=== PATIENT | female | born 1990 | race Caucasian/White ===

== ENCOUNTER 2016-08-02 04:09 | Inpatient (IN) | payer BC ==
[2016-08-02] MEDS ORDERED: Sodium Chloride 0.9% 10 ML Syringe FLUSH PRN (05:15)
[2016-08-02] MEDS ORDERED: Nalbuphine 20 MG/1 ML Amp IVPUSH PRN (05:15)
[2016-08-02] MEDS ORDERED: Oxytocin/Lactated Ringers 10 UNIT/1,000 ML BAG IV SCH (05:15)
[2016-08-02] MEDS ORDERED: Ondansetron 4 MG/2 ML SDV IVPUSH PRN ×2 (05:15→08:58)
[2016-08-02] MEDS ORDERED: Lidocaine 1% 50 ML MDV INJECT ONE (05:15)
[2016-08-02] MEDS: Lactated Ringers 1,000 ML IV SCH ×3 (06:35→15:00)
--- NOTE | 2016-08-02 07:00 | PCM.LDHP ---
L&D History of Present Illness - General Date of Service: 08/02/16 Admit Problem/Dx: Patient Status Order with Admit Dx/Problem 08/02/16 05:16 Patient Status [ADT] Routine Admission Diagnosis/Problem Admission Diagnosis/Problem Normal labor Source of Information: Patient History Limitations: Reports: No limitations - History of Present Illness Introduction:: Patient is a 26-year-old at 38-3/7 weeks who presented this morning in early labor. Yesterday in clinic found to be about 2 cm dilated. On initial assessment here in labor and delivery was 3 cm and has now made change to 3-4 cm and 90% effacement. Is trisha frequently about every 3-5 minutes. She is otherwise doing well. No rupture of membranes yet. No other concerns. Pain Score: 8 - Related Data Allergies/Adverse Reactions: Allergies Allergy/AdvReac Type Severity Reaction Status Date / Time No Known Allergies Allergy Verified 08/02/16 05:08 Home Medications: Home Meds #103/Iron Fumarate/Fa [ ] 1 tab PO DAILY 01/21/15 [ History] Calcium Carbonate [Tums] 500 mg PO Q2HR PRN 08/02/16 [History] Past Medical History [employer] History: Reports: , Spontaneous : 5 Para: 0 LMP (Approximate): - Past Surgical History GI Surgical History: Reports: Appendectomy Female Surgical History: Reports: Cystectomy (Right), D&C Social & Family History - Family History Family Medical History: Noncontributory - Tobacco Use Smoking Status *Q: Never Smoker Second Hand Smoke Exposure: No - Caffeine Use Caffeine Use: Reports: None - Alcohol Use Alcohol Use History: No - Recreational Drug Use Recreational Drug Use: No H&P Review of Systems - Review of Systems: Review Of Systems: See Below General: Reports: no symptoms Pulmonary: Reports: No Symptoms Cardiovascular: Reports: no symptoms Gastrointestinal: Reports: No symptoms Genitourinary: Reports: no symptoms Musculoskeletal: Reports: no symptoms Psychiatric: Reports: no symptoms L&D Exam - Exam Exam: See Below - Vital Signs Vital Signs: Last Vital Signs Temp 36.2 C 08/02/16 04:30 Pulse 91 08/02/16 04:30 Resp 18 08/02/16 04:30 BP 139/84 08/02/16 04:30 Pulse Ox 100 08/02/16 04:30 Weight: 108.227 kg - OB Specific Contraction Intensity: Moderate to Strong movement: active heart tones: present heart tones per min: 135 Heart Rate (FHR) Variability: Moderate (6-25 bmp) Presentation: Vertex - Dunn Score Dunn Score Cervix Position: Midposition Dunn Score Consistency: Soft Dunn Score Effacement: >80% Dunn Score Dilation: 3-4 cm Dunn Score Infant's Station: -1 ,0 Dunn Score Total: 10 - Exam General: alert, oriented, cooperative Lungs: Clear to auscultation, Normal respiratory effort Cardiovascular: regular rate, regular rhythm Abdomen: soft Genitourinary: Normal external exam Extremities: normal inspection - Patient Data Lab Results last 24 hrs: Laboratory Results - last 24 hr 08/02/16 08/02/16 08/02/16 Range/Units 05:35 05:35 05:53 WBC 8.77 (3.98-10.04) K/mm3 RBC 4.76 (3.98-5.22) M/mm3 Hgb 13.9 (11.2-15.7) gm/L Hct 41.0 (34.1-44.9) % MCV 86.1 (79.4-94.8) fl MCH 29.2 (25.6-32.2) pg MCHC 33.9 (32.2-35.5) g/dl RDW Std Deviation 42.9 (36.4-46.3) fL Plt Count 193 (182-369) K/mm3 MPV 12.7 H (9.4-12.3) fl Neut % (Auto) 81.6 H (34.0-71.1) % Lymph % (Auto) 14.4 L (19.3-51.7) % [place] % (Auto) 3.5 L (4.7-12.5) % Eos % (Auto) 0.2 L (0.7-5.8) Baso % (Auto) 0.1 (0.1-1.2) % Neut # (Auto) 7.15 H (1.56-6.13) K/mm3 Lymph # (Auto) 1.26 (1.18-3.74) K/mm3 [place] # (Auto) 0.31 (0.24-0.36) K/mm3 Eos # (Auto) 0.02 L (0.04-0.36) K/mm3 Baso # (Auto) 0.01 (0.01-0.08) K/mm3 POC Glucose 91 (70-105) mg/dL Blood Type O POSITIVE Gel Antibody Screen Negative Result Diagrams: 08/02/16 05:35 - Problem List (1) 38 weeks gestation of SNOMED Code(s): 12764422 ICD Code: Z3A.38 - 38 WEEKS GESTATION OF Status: Acute Current Visit: Yes (2) Normal labor SNOMED Code(s): 99937575 ICD Code: O80 - ENCOUNTER FOR FULL-TERM UNCOMPLICATED DELIVERY; Z37.9 - OUTCOME OF DELIVERY, UNSPECIFIED Status: Acute Current Visit: Yes (3) GDM, class A1 SNOMED Code(s): 61654282 ICD Code: O24.410 - GESTATIONAL DIABETES MELLITUS IN , DIET CONTROLLED Status: Acute Current Visit: Yes Problem List Initiated/Reviewed/Updated: Yes Orders Last 24hrs: Active Orders 24 hr Category Date Time Status Patient Status [ADT] Routine ADT 08/02/16 05:16 Active Activity as Tolerated [RC] PFP Care 08/02/16 05:16 Active Blood Glucose Check, Bedside [RC] Q4HR Care 08/02/16 05:15 Active Communication Order [RC] ASDIRECTED Care 08/02/16 05:16 Active Notify Provider [RC] PFP Care 08/02/16 05:16 Active Notify Provider [RC] PRN Care 08/02/16 05:16 Active Peripheral IV Care [RC] . DIRECTED Care 08/02/16 05:16 Active Vital Signs [RC] PER UNIT ROUTINE Care 08/02/16 05:16 Active Regular Diet [DIET] Diet 08/02/16 Breakfast Ordered PATIENT RETYPE [BBK] Stat Lab 08/02/16 05:35 Results TYPE AND SCREEN [BBK] Stat Lab 08/02/16 05:35 Results Lactated Ringers [Ringers, Lactated] 1,000 ml Med 08/02/16 05:15 Active IV ASDIRECTED Nalbuphine [Nubain] Med 08/02/16 05:15 Active 10 mg IVPUSH Q2H PRN Ondansetron [Zofran] Med 08/02/16 05:15 Active 4 mg IVPUSH Q4H PRN Oxytocin/Lactated Ringers [Pitocin in LR 10 Units/1,000 Med 08/02/16 05:15 Active ML] 10 unit in 1,000 ml IV ASDIRECTED Sodium Chloride 0.9% [Saline Flush] Med 08/02/16 05:15 Active 10 ml FLUSH ASDIRECTED PRN Electronic Heart Tones Ext w TOCO [WOMSER] Oth 08/02/16 05:16 Ordered Routine Electronic Heart Tones Internal [WOMSER] Per Unit Oth 08/02/16 05:16 Ordered Routine Peripheral IV Insertion Adult [OM.PC] Routine Oth 08/02/16 05:16 Ordered Resuscitation Status Routine Resus Stat 08/02/16 05:15 Ordered Medication Orders Lactated Ringer's (Ringers, Lactated) 1,000 mls @ 100 mls/hr IV ASDIRECTED [facility] Last Admin: 08/02/16 06:35 Dose: 100 mls/hr Oxytocin/Lactated Ringer's (Pitocin In Lr 10 Units/1,000 Ml) 10 unit in 1,000 mls @ 500 mls/hr IV ASDIRECTED [facility] Nalbuphine HCl (Nubain) 10 mg IVPUSH Q2H PRN PRN Reason: Pain (moderate 4-6) Last Admin: 08/02/16 06:38 Dose: 10 mg Ondansetron HCl (Zofran) 4 mg IVPUSH Q4H PRN PRN Reason: Nausea/Vomiting Sodium Chloride (Saline Flush) 10 ml FLUSH ASDIRECTED PRN PRN Reason: Keep Vein Open Assessment/Plan Comment:: 26-year-old at 38-3/7 weeks presents in labor * CBC and type and screen * Blood sugars every 4 hours in latent labor and then increasing to every 2 in active labor * GBS negative, no need for antibiotics * Pain management per patient preference * Anticipate vaginal delivery Negin Nichole MD
[2016-08-02] MEDS ORDERED: ePHEDrine 50 MG/ML SDV IVPUSH PRN (08:58)
--- NOTE | 2016-08-02 09:06 | PCM.PREANE ---
Preanesthetic Assessment - Anesthesia/Transfusion/Family Hx Anesthesia History: Prior Anesthesia Without Reaction Family History of Anesthesia Reaction: No Transfusion History: No Prior Transfusion(s) Intubation History: Unknown - Review of Systems General: No Symptoms Pulmonary: No Symptoms Cardiovascular: No Symptoms Gastrointestinal: No symptoms (GERD), Nausea (noted a bit today.) Neurological: No Symptoms Other: Reports: Easy Bruising, Diabetes (Gestational DM noted (diet controlled) ), Sinus Problem (seasonal allergies with rhinitis noted.) - Physical Assessment NPO Status Date: 08/02/16 NPO Status Time: 09:00 Pulse: 91 O2 Sat by Pulse Oximetry: 100 Respiratory Rate: 18 Blood Pressure: 139/84 Temperature: 36.2 C Vital Signs: Last Vital Signs Temp 36.2 C 08/02/16 04:30 Pulse 91 08/02/16 04:30 Resp 18 08/02/16 04:30 BP 139/84 08/02/16 04:30 Pulse Ox 100 08/02/16 04:30 Height: 1.7 m Weight: 108.227 kg ASA Class: 2 Mental Status: Alert & Oriented x3 Airway Class: Mallampati = 2 Dentition: Reports: Broken Tooth/Teeth (cracked solid tooth noted in the posterior left) Thyro-Mental Finger Breadths: 3 Mouth Opening Finger Breadths: 3 ROM/Head Extension: Full Lungs: Clear to auscultation, Normal respiratory effort Cardiovascular: Regular Rate, Regular Rhythm - Lab Values: Laboratory Last Values WBC 8.77 K/mm3 (3.98-10.04) 08/02/16 05:35 RBC 4.76 M/mm3 (3.98-5.22) 08/02/16 05:35 Hgb 13.9 gm/L (11.2-15.7) 08/02/16 05:35 Hct 41.0 % (34.1-44.9) 08/02/16 05:35 MCV 86.1 fl (79.4-94.8) 08/02/16 05:35 MCH 29.2 pg (25.6-32.2) 08/02/16 05:35 MCHC 33.9 g/dl (32.2-35.5) 08/02/16 05:35 RDW Std Deviation 42.9 fL (36.4-46.3) 08/02/16 05:35 Plt Count 193 K/mm3 (182-369) 08/02/16 05:35 MPV 12.7 fl (9.4-12.3) H 08/02/16 05:35 Neut % (Auto) 81.6 % (34.0-71.1) H 08/02/16 05:35 Lymph % (Auto) 14.4 % (19.3-51.7) L 08/02/16 05:35 [place] % (Auto) 3.5 % (4.7-12.5) L 08/02/16 05:35 Eos % (Auto) 0.2 (0.7-5.8) L 08/02/16 05:35 Baso % (Auto) 0.1 % (0.1-1.2) 08/02/16 05:35 Neut # (Auto) 7.15 K/mm3 (1.56-6.13) H 08/02/16 05:35 Lymph # (Auto) 1.26 K/mm3 (1.18-3.74) 08/02/16 05:35 [place] # (Auto) 0.31 K/mm3 (0.24-0.36) 08/02/16 05:35 Eos # (Auto) 0.02 K/mm3 (0.04-0.36) L 08/02/16 05:35 Baso # (Auto) 0.01 K/mm3 (0.01-0.08) 08/02/16 05:35 POC Glucose 115 mg/dL (70-105) H 08/02/16 08:10 Blood Type O POSITIVE 08/02/16 05:35 Gel Antibody Screen Negative 08/02/16 05:35 Reviewed and noted from above labs. - Allergies Allergies/Adverse Reactions: Allergies Allergy/AdvReac Type Severity Reaction Status Date / Time No Known Allergies Allergy Verified 08/02/16 05:08 - Anesthesia Plan Pre-Op Medication Ordered: None - Acknowledgements Anesthesia Type Planned: Epidural Pt an Appropriate Candidate for the Planned Anesthesia: Yes Alternatives and Risks of Anesthesia Discussed w Pt/Guardian: Yes Pt/Guardian Understands and Agrees with Anesthesia Plan: Yes PreAnesthesia Questionnaire PLUGMAN History: Reports: , Spontaneous Other OB/BYN History: Right Ovarian Cyst removed - Past Surgical History GI Surgical History: Reports: Appendectomy Female Surgical History: Reports: Cystectomy (Right), D&C - SUBSTANCE USE Smoking Status *Q: Never Smoker Second Hand Smoke Exposure: No Recreational Drug Use History: No - HOME MEDS Home Medications: Home Meds #103/Iron Fumarate/Fa [ ] 1 tab PO DAILY 01/21/15 [ History] Calcium Carbonate [Tums] 500 mg PO Q2HR PRN 08/02/16 [History] - CURRENT (IN HOUSE) MEDS Current Meds: Current Medications Lactated Ringer's (Ringers, Lactated) 1,000 mls @ 100 mls/hr IV ASDIRECTED [facility] Last Admin: 08/02/16 06:35 Dose: 100 mls/hr Oxytocin/Lactated Ringer's (Pitocin In Lr 10 Units/1,000 Ml) 10 unit in 1,000 mls @ 500 mls/hr IV ASDIRECTED [facility] Nalbuphine HCl (Nubain) 10 mg IVPUSH Q2H PRN PRN Reason: Pain (moderate 4-6) Last Admin: 08/02/16 06:38 Dose: 10 mg Ondansetron HCl (Zofran) 4 mg IVPUSH Q4H PRN PRN Reason: Nausea/Vomiting Sodium Chloride (Saline Flush) 10 ml FLUSH ASDIRECTED PRN PRN Reason: Keep Vein Open Discontinued Medications Lidocaine HCl (Xylocaine 1%) 20 ml INJECT ONETIME ONE Stop: 08/02/16 05:16
[2016-08-02] MEDS: Bupivacaine/fentaNYL/NS 100 ML Bag EPIDUR SCH ×2 (09:51→18:37)
[2016-08-02] MEDS: fentaNYL 100 MCG/2 ML SDV EPIDUR PRN ×2 (09:52→16:50)
--- NOTE | 2016-08-02 11:44 | PCM.PNLD ---
Labor Progress Note - VS & Meds Vital Signs: Last Vital Signs Temp 36.2 C 08/02/16 09:10 Pulse 91 08/02/16 09:10 Resp 18 08/02/16 09:10 BP 139/84 08/02/16 09:10 Pulse Ox 100 08/02/16 09:10 Active Medications: Current Medications Ephedrine Sulfate (Ephedrine Sulfate) 5 mg IVPUSH ASDIRECTED PRN PRN Reason: Hypotension Fentanyl (Sublimaze) 100 mcg EPIDUR Q3H PRN PRN Reason: Pain Last Admin: 08/02/16 09:52 Dose: 100 mcg Fentanyl/Bupivacaine HCl (Fentanyl/Bupivacaine/Ns 2 Mcg-0.125% 100 Ml) 100 ml EPIDUR ASDIRECTED [facility] Last Admin: 08/02/16 09:51 Dose: 100 ml Lactated Ringer's (Ringers, Lactated) 1,000 mls @ 100 mls/hr IV ASDIRECTED [facility] Last Admin: 08/02/16 09:51 Dose: 100 mls/hr Oxytocin/Lactated Ringer's (Pitocin In Lr 10 Units/1,000 Ml) 10 unit in 1,000 mls @ 500 mls/hr IV ASDIRECTED [facility] Nalbuphine HCl (Nubain) 10 mg IVPUSH Q2H PRN PRN Reason: Pain (moderate 4-6) Last Admin: 08/02/16 06:38 Dose: 10 mg Ondansetron HCl (Zofran) 4 mg IVPUSH Q4H PRN PRN Reason: Nausea/Vomiting Last Admin: 08/02/16 10:58 Dose: 4 mg Ondansetron HCl (Zofran) 4 mg IVPUSH ONETIME PRN PRN Reason: Nausea/Vomiting Sodium Chloride (Saline Flush) 10 ml FLUSH ASDIRECTED PRN PRN Reason: Keep Vein Open Discontinued Medications Lidocaine HCl (Xylocaine 1%) 20 ml INJECT ONETIME ONE Stop: 08/02/16 05:16 - Uterine Contractions Uterine Monitoring Mode: External [place] Contraction Intensity: Moderate to Strong - Monitoring Monitor Mode: External Ultrasound Heart Rate (FHR) Baseline: 130 Heart Rate (FHR) Variability: Moderate (6-25 bmp) Accelerations: Present, 15x15 Decelerations: Early, Late (rare) Strip Review: Category II - Vaginal Exam Dilation (cm): 5-6 Effacement (Percent): 90 Station: 0 Cervical Position: Anterior - Labor Progress (Free Text) Labor Progress: Patient doing well. Comfortable now with epidural. AROM performed with release of clear fluid. Continue present management.
[2016-08-02] MEDS ORDERED: Misoprostol 200 MCG Tab ONE (19:57)
[2016-08-02] MEDS: Misoprostol 200 MCG Tab PO SCH ×2 (19:58→21:32)
--- NOTE | 2016-08-02 20:25 | PCM.DEL ---
L & D Note - General Info Date of Service: 08/02/16 - Delivery Note Labor: spontaneous Delivery Outcome: Livebirth Delivery Method: Spontaneous Vaginal Delivery Delivery Mode: Spontaneous Presentation: Right Occiput Anterior (DENNIS) Nuchal cord: present, reduced Anesthesia Type: Epidural Amniotic Fluid Description: Clear Episiotomy Type: None Laceration: 3rd degree (Rectal sphincter visualized, but thought to be intact ) Suture type: vicryl Suture size: 2-0 Placenta: intact, spontaneous Cord: 3 vessels Estimated blood loss: 450 Resuscitation needed: Yes Adel: bulb syringe, stimulated, warmed, blanket used, warmer used Score 1 min: 9 Score 5 min: 9 Delivery Comments (Free Text/Narrative):: Patient found to be complete and began pushing. After about 2 hours of pushing pitocin was started to help strengthen contractions. Eventually with maternal pushing effort head delivered from an DENNIS presentation. (Total pushing time ~3 hours) Nuchal cord present and reduced. With gentle downward traction the shoulders and body delivered. Infant placed on maternal abdomen. Cord clamped and cut. Cord blood obtained. Placenta allowed time to separate and expelled intact. Patient with relatively wright bleeding at this time which did not completely respond to pitocin or fundal massage. 600 mcg of buccal cytotec given with good response. Next inspection of the perineum done and showed exposure of the rectal spincter, but was not thought to be torn. A gloved finger was placed into the rectum and confirmed it was intact. An 0 Vicryl suture was used to re-inforce the sphincter with an interrupted stitch. Vaginal apex of tear was difficult to see and so 2-0 vicryl suture anchored just above the hymen and several throws of suture performed cephalad before moving back caudal and performing repair of remainder of tear in a typical fashion. - Patient Data Vitals - most recent: Last Vital Signs Temp 36.2 C 08/02/16 09:10 Pulse 91 08/02/16 09:10 Resp 18 08/02/16 09:10 BP 139/84 08/02/16 09:10 Pulse Ox 100 08/02/16 09:10 Weight - most recent: 108.227 kg I&O - last 24 hours: Intake & Output 08/02/16 08/02/16 08/02/16 06:59 14:59 22:59 Intake Total 1000 1240 Balance 1000 1240 Lab Results last 24 hrs: Laboratory Results - last 24 hr 08/02/16 08/02/16 08/02/16 Range/Units 05:35 05:35 05:53 WBC 8.77 (3.98-10.04) K/mm3 RBC 4.76 (3.98-5.22) M/mm3 Hgb 13.9 (11.2-15.7) gm/L Hct 41.0 (34.1-44.9) % MCV 86.1 (79.4-94.8) fl MCH 29.2 (25.6-32.2) pg MCHC 33.9 (32.2-35.5) g/dl RDW Std Deviation 42.9 (36.4-46.3) fL Plt Count 193 (182-369) K/mm3 MPV 12.7 H (9.4-12.3) fl Neut % (Auto) 81.6 H (34.0-71.1) % Lymph % (Auto) 14.4 L (19.3-51.7) % [place] % (Auto) 3.5 L (4.7-12.5) % Eos % (Auto) 0.2 L (0.7-5.8) Baso % (Auto) 0.1 (0.1-1.2) % Neut # (Auto) 7.15 H (1.56-6.13) K/mm3 Lymph # (Auto) 1.26 (1.18-3.74) K/mm3 [place] # (Auto) 0.31 (0.24-0.36) K/mm3 Eos # (Auto) 0.02 L (0.04-0.36) K/mm3 Baso # (Auto) 0.01 (0.01-0.08) K/mm3 POC Glucose 91 (70-105) mg/dL Blood Type O POSITIVE Gel Antibody Screen Negative 08/02/16 08/02/16 08/02/16 Range/Units 08:10 11:43 14:24 WBC (3.98-10.04) K/mm3 RBC (3.98-5.22) M/mm3 Hgb (11.2-15.7) gm/L Hct (34.1-44.9) % MCV (79.4-94.8) fl MCH (25.6-32.2) pg MCHC (32.2-35.5) g/dl RDW Std Deviation (36.4-46.3) fL Plt Count (182-369) K/mm3 MPV (9.4-12.3) fl Neut % (Auto) (34.0-71.1) % Lymph % (Auto) (19.3-51.7) % [place] % (Auto) (4.7-12.5) % Eos % (Auto) (0.7-5.8) Baso % (Auto) (0.1-1.2) % Neut # (Auto) (1.56-6.13) K/mm3 Lymph # (Auto) (1.18-3.74) K/mm3 [place] # (Auto) (0.24-0.36) K/mm3 Eos # (Auto) (0.04-0.36) K/mm3 Baso # (Auto) (0.01-0.08) K/mm3 POC Glucose 115 H 84 100 (70-105) mg/dL Blood Type Gel Antibody Screen 08/02/16 Range/Units 15:59 WBC (3.98-10.04) K/mm3 RBC (3.98-5.22) M/mm3 Hgb (11.2-15.7) gm/L Hct (34.1-44.9) % MCV (79.4-94.8) fl MCH (25.6-32.2) pg MCHC (32.2-35.5) g/dl RDW Std Deviation (36.4-46.3) fL Plt Count (182-369) K/mm3 MPV (9.4-12.3) fl Neut % (Auto) (34.0-71.1) % Lymph % (Auto) (19.3-51.7) % [place] % (Auto) (4.7-12.5) % Eos % (Auto) (0.7-5.8) Baso % (Auto) (0.1-1.2) % Neut # (Auto) (1.56-6.13) K/mm3 Lymph # (Auto) (1.18-3.74) K/mm3 [place] # (Auto) (0.24-0.36) K/mm3 Eos # (Auto) (0.04-0.36) K/mm3 Baso # (Auto) (0.01-0.08) K/mm3 POC Glucose 75 (70-105) mg/dL Blood Type Gel Antibody Screen Med Orders - Current: Current Medications Ephedrine Sulfate (Ephedrine Sulfate) 5 mg IVPUSH ASDIRECTED PRN PRN Reason: Hypotension Fentanyl (Sublimaze) 100 mcg EPIDUR Q3H PRN PRN Reason: Pain Last Admin: 08/02/16 16:50 Dose: 100 mcg Fentanyl/Bupivacaine HCl (Fentanyl/Bupivacaine/Ns 2 Mcg-0.125% 100 Ml) 100 ml EPIDUR ASDIRECTED [facility] Last Admin: 08/02/16 18:37 Dose: 100 ml Lactated Ringer's (Ringers, Lactated) 1,000 mls @ 100 mls/hr IV ASDIRECTED [facility] Last Admin: 08/02/16 15:00 Dose: 100 mls/hr Oxytocin/Lactated Ringer's (Pitocin In Lr 10 Units/1,000 Ml) 10 unit in 1,000 mls @ 500 mls/hr IV ASDIRECTED [facility] Last Admin: 08/02/16 18:37 Dose: 12 mls/hr Nalbuphine HCl (Nubain) 10 mg IVPUSH Q2H PRN PRN Reason: Pain (moderate 4-6) Last Admin: 08/02/16 06:38 Dose: 10 mg Ondansetron HCl (Zofran) 4 mg IVPUSH Q4H PRN PRN Reason: Nausea/Vomiting Last Admin: 08/02/16 10:58 Dose: 4 mg Ondansetron HCl (Zofran) 4 mg IVPUSH ONETIME PRN PRN Reason: Nausea/Vomiting Sodium Chloride (Saline Flush) 10 ml FLUSH ASDIRECTED PRN PRN Reason: Keep Vein Open Discontinued Medications Lidocaine HCl (Xylocaine 1%) 20 ml INJECT ONETIME ONE Stop: 08/02/16 05:16 Misoprostol (Cytotec) Confirm Administered Dose 600 mcg .ROUTE .STK-MED ONE Stop: 08/02/16 19:58 - Problem List & Annotations (1) 38 weeks gestation of SNOMED Code(s): 01462541 Code(s): Z3A.38 - 38 WEEKS GESTATION OF Status: Acute Current Visit: Yes (2) Normal labor SNOMED Code(s): 34639777 Code(s): O80 - ENCOUNTER FOR FULL-TERM UNCOMPLICATED DELIVERY; Z37.9 - OUTCOME OF DELIVERY, UNSPECIFIED Status: Acute Current Visit: Yes (3) GDM, class A1 SNOMED Code(s): 61619615 Code(s): O24.410 - GESTATIONAL DIABETES MELLITUS IN , DIET CONTROLLED Status: Acute Current Visit: Yes (4) Vaginal delivery SNOMED Code(s): 948698882 Code(s): O80 - ENCOUNTER FOR FULL-TERM UNCOMPLICATED DELIVERY Status: Acute Current Visit: Yes (5) Third degree laceration of perineum, type 3A SNOMED Code(s): 200360139 Code(s): O70.21 - THIRD DEGREE PERINEAL LACERATION DURING DELIVERY, IIIA Status: Acute Current Visit: Yes - Problem List Review Problem List Initiated/Reviewed/Updated: Yes - My Orders Last 24 Hours: My Active Orders 08/02/16 05:15 Blood Glucose Check, Bedside [RC] Q2HR Lactated Ringers [Ringers, Lactated] 1,000 ml IV ASDIRECTED Nalbuphine [Nubain] 10 mg IVPUSH Q2H PRN Ondansetron [Zofran] 4 mg IVPUSH Q4H PRN Oxytocin/Lactated Ringers [Pitocin in LR 10 Units/1,000 ML] 10 unit in 1,000 ml IV ASDIRECTED Sodium Chloride 0.9% [Saline Flush] 10 ml FLUSH ASDIRECTED PRN Resuscitation Status Routine 08/02/16 05:16 Patient Status [ADT] Routine Activity as Tolerated [RC] PFP Communication Order [RC] ASDIRECTED Notify Provider [RC] PFP Notify Provider [RC] PRN Peripheral IV Care [RC] . DIRECTED Vital Signs [RC] PER UNIT ROUTINE Electronic Heart Tones Ext w TOCO [WOMSER] Routine Electronic Heart Tones Internal [WOMSER] Per Unit Routine Peripheral IV Insertion Adult [OM.PC] Routine 08/02/16 Breakfast Regular Diet [DIET] - Assessment Assessment:: 26-year-old G5 now [id number] PPD#0 from at 38-3/7 weeks - Plan Plan:: * Routine cares * Encourage breast feeding * Blood sugar in AM * Discharge home in 2 days Negin Nichole MD
[2016-08-02] MEDS ORDERED: Benzocaine/Menthol 20%-0.5% Spray 56 GM Canister TOP PRN (20:44)
[2016-08-02] MEDS ORDERED: Lanolin 100% Cream 7 GM Tube TOP PRN (20:44)
[2016-08-02] MEDS ORDERED: Witch Hazel Medicated Pads 100/Jar TOP PRN (20:44)
[2016-08-02] MEDS ORDERED: Acetaminophen 325 MG Tab PO PRN (20:44)
[2016-08-02] MEDS ORDERED: Bupivacaine 0.25% 10 ML SDV ONE (20:44)
[2016-08-02] MEDS: Docusate Sodium 100 MG Cap PO PRN (21:33)
[2016-08-02] MEDS: Ibuprofen 600 MG Tab PO PRN (21:34)
[2016-08-03] MEDS: Ibuprofen 600 MG Tab PO PRN ×3 (05:22→19:52)
--- NOTE | 2016-08-03 07:27 | PCM.PNPP ---
- General Info Date of Service: 08/03/16 Functional Status: Reports: pain controlled, tolerating diet, ambulating, urinating - Review of Systems General: Reports: No Symptoms Pulmonary: Reports: no symptoms Cardiovascular: Reports: No Symptoms Gastrointestinal: Reports: No symptoms Genitourinary: Reports: no symptoms Musculoskeletal: Reports: no symptoms - Patient Data Vital Signs - most recent: Last Vital Signs Temp 36.3 C 08/03/16 05:17 Pulse 84 08/03/16 05:17 Resp 15 08/03/16 05:17 BP 119/78 08/03/16 05:17 Pulse Ox 98 08/03/16 05:17 Weight - most recent: 108.227 kg I&O - last 24 hours: Intake & Output 08/02/16 08/03/16 08/03/16 22:59 06:59 14:59 Intake Total 3240 Balance 3240 Lab Results - last 24 hrs: Laboratory Results - last 24 hr 08/02/16 08/02/16 08/02/16 Range/Units 05:35 08:10 11:43 POC Glucose 115 H 84 (70-105) mg/dL Blood Type O POSITIVE Gel Antibody Screen Negative 08/02/16 08/02/16 08/03/16 Range/Units 14:24 15:59 05:15 POC Glucose 100 75 87 (70-105) mg/dL Blood Type Gel Antibody Screen Med Orders - Current: Current Medications Acetaminophen (Tylenol) 650 mg PO Q4H PRN PRN Reason: mild pain or fever Benzocaine/Menthol (Dermoplast Pain Relief [place]) 0 gm TOP ASDIRECTED PRN PRN Reason: Perineal Comfort Measure Last Admin: 08/02/16 21:34 Dose: 56 gm Docusate Sodium (Colace) 100 mg PO BID PRN PRN Reason: Constipation Last Admin: 08/02/16 21:33 Dose: 100 mg Emollient Ointment (Lansinoh Hpa) 0 gm TOP ASDIRECTED PRN PRN Reason: Sore Nipples Last Admin: 08/02/16 21:33 Dose: 7 gm Ibuprofen (Motrin) 600 mg PO Q6H PRN PRN Reason: Mild pain or fever Last Admin: 08/03/16 05:22 Dose: 600 mg Witch Diane (Tucks) 1 pad TOP ASDIRECTED PRN PRN Reason: Hemorrhoid pain Last Admin: 08/02/16 21:34 Dose: 1 pad Discontinued Medications Ephedrine Sulfate (Ephedrine Sulfate) 5 mg IVPUSH ASDIRECTED PRN PRN Reason: Hypotension Fentanyl (Sublimaze) 100 mcg EPIDUR Q3H PRN PRN Reason: Pain Last Admin: 08/02/16 16:50 Dose: 100 mcg Fentanyl/Bupivacaine HCl (Fentanyl/Bupivacaine/Ns 2 Mcg-0.125% 100 Ml) 100 ml EPIDUR ASDIRECTED [facility] Last Admin: 08/02/16 18:37 Dose: 100 ml Lactated Ringer's (Ringers, Lactated) 1,000 mls @ 100 mls/hr IV ASDIRECTED [facility] Last Admin: 08/02/16 15:00 Dose: 100 mls/hr Oxytocin/Lactated Ringer's (Pitocin In Lr 10 Units/1,000 Ml) 10 unit in 1,000 mls @ 500 mls/hr IV ASDIRECTED [facility] Last Infusion: 08/02/16 19:55 Dose: 500 mls/hr Lidocaine HCl (Xylocaine 1%) 20 ml INJECT ONETIME ONE Stop: 08/02/16 05:16 Last Admin: 08/02/16 20:59 Dose: Not Given Misoprostol (Cytotec) Confirm Administered Dose 600 mcg .ROUTE .STK-MED ONE Stop: 08/02/16 19:58 Last Admin: 08/02/16 20:59 Dose: Not Given Misoprostol (Cytotec) 600 mcg PO BID [facility] Last Admin: 08/02/16 21:32 Dose: Not Given Nalbuphine HCl (Nubain) 10 mg IVPUSH Q2H PRN PRN Reason: Pain (moderate 4-6) Last Admin: 08/02/16 06:38 Dose: 10 mg Ondansetron HCl (Zofran) 4 mg IVPUSH Q4H PRN PRN Reason: Nausea/Vomiting Last Admin: 08/02/16 10:58 Dose: 4 mg Ondansetron HCl (Zofran) 4 mg IVPUSH ONETIME PRN PRN Reason: Nausea/Vomiting Sodium Chloride (Saline Flush) 10 ml FLUSH ASDIRECTED PRN PRN Reason: Keep Vein Open - Interaction Disposition, : in Room with Family Interaction: Holding Feeding: Attempted ; Nursed Fair/Poor Support Person: - Recovery Exam Fundal Tone: Firm Fundal Level: 1 Fingerbreadths Above Umbilicus Fundal Placement: Midline Lochia Amount: Small Lochia Color: Rubra/Red Perineum Description: Other (see below) Other Perinuem Description: 3rd degree with repair Episiotomy/Laceration: Approximated Bladder Status: Voiding - Exam General: alert, oriented, cooperative Abdomen: soft, no tenderness Extremities: edema Skin: warm, dry, intact - Problem List & Annotations (1) 38 weeks gestation of SNOMED Code(s): 18058551 Code(s): Z3A.38 - 38 WEEKS GESTATION OF Status: Acute Current Visit: Yes (2) Normal labor SNOMED Code(s): 22527613 Code(s): O80 - ENCOUNTER FOR FULL-TERM UNCOMPLICATED DELIVERY; Z37.9 - OUTCOME OF DELIVERY, UNSPECIFIED Status: Acute Current Visit: Yes (3) GDM, class A1 SNOMED Code(s): 03660572 Code(s): O24.410 - GESTATIONAL DIABETES MELLITUS IN , DIET CONTROLLED Status: Acute Current Visit: Yes (4) Vaginal delivery SNOMED Code(s): 215995067 Code(s): O80 - ENCOUNTER FOR FULL-TERM UNCOMPLICATED DELIVERY Status: Acute Current Visit: Yes (5) Third degree laceration of perineum, type 3A SNOMED Code(s): 924475507 Code(s): O70.21 - THIRD DEGREE PERINEAL LACERATION DURING DELIVERY, IIIA Status: Acute Current Visit: Yes - Problem List Review Problem List Initiated/Reviewed/Updated: Yes - My Orders Last 24 Hours: My Active Orders 08/02/16 20:44 Activity as Tolerated [RC] PER UNIT ROUTINE Vital Signs [RC] 04,12,20 Acetaminophen [Tylenol] 650 mg PO Q4H PRN Benzocaine/Menthol [Dermoplast Pain Relief [place]] See Dose Instructions TOP ASDIRECTED PRN Docusate Sodium [Colace] 100 mg PO BID PRN Ibuprofen [Motrin] 600 mg PO Q6H PRN Lanolin [Lansinoh HPA] See Dose Instructions TOP ASDIRECTED PRN Witch Diane [Tucks] 1 pad TOP ASDIRECTED PRN Assess Lochia [WOMSER] Per Unit Routine Assess Uterine Involution [WOMSER] Per Unit Routine Breast Pump [WOMSER] Per Unit Routine Heat Therapy [OM.PC] PRN Ice Therapy [OM.PC] Per Unit Routine Perineal Care [OM.PC] Per Unit Routine Peripheral IV Discontinue [OM.PC] Routine Sitz Bath [OM.PC] Per Unit Routine 08/02/16 Dinner Regular Diet [DIET] 08/03/16 05:00 Blood Glucose Check, Bedside [RC] AMPROC 08/03/16 20:44 Heat Therapy [OM.PC] PRN - Assessment Assessment:: 26-year-old G5 now [id number] PPD#1 from at 38-3/7 weeks - Plan Plan:: * Routine cares * Encourage breast feeding * Blood sugar this morning appropriate. No need for further monitoring. Will need 2hr GTT at check * Discharge home tomorrow Negin Nichole MD
--- NOTE | 2016-08-03 08:42 | PCM48HPAN ---
Post Anesthesia Note - EVALUATION WITHIN 48HRS OF ANESTHETIC Vital Signs in Normal Range: Yes Patient Participated in Evaluation: Yes Respiratory Function Stable: Yes Airway Patent: Yes Cardiovascular Function Stable: Yes Hydration Status Stable: Yes Pain Control Satisfactory: Yes Nausea and Vomiting Control Satisfactory: Yes Mental Status Recovered: Yes
[2016-08-03] MEDS: Docusate Sodium 100 MG Cap PO PRN ×2 (09:37→22:17)
[2016-08-04] MEDS: Ibuprofen 600 MG Tab PO PRN ×2 (04:07→11:45)
--- NOTE | 2016-08-04 07:01 | PCM.DCSUM1 ---
Discharge Summary - Discharge Data Discharge Date: 08/04/16 Discharge Disposition: Home, Self-Care 01 Condition: Good - Discharge Diagnosis/Problem(s) (1) 38 weeks gestation of SNOMED Code(s): 04797624 ICD Code: Z3A.38 - 38 WEEKS GESTATION OF Status: Acute Current Visit: Yes (2) Normal labor SNOMED Code(s): 30221557 ICD Code: O80 - ENCOUNTER FOR FULL-TERM UNCOMPLICATED DELIVERY; Z37.9 - OUTCOME OF DELIVERY, UNSPECIFIED Status: Acute Current Visit: Yes (3) GDM, class A1 SNOMED Code(s): 03803962 ICD Code: O24.410 - GESTATIONAL DIABETES MELLITUS IN , DIET CONTROLLED Status: Acute Current Visit: Yes (4) Vaginal delivery SNOMED Code(s): 361881673 ICD Code: O80 - ENCOUNTER FOR FULL-TERM UNCOMPLICATED DELIVERY Status: Acute Current Visit: Yes (5) Third degree laceration of perineum, type 3A SNOMED Code(s): 700241496 ICD Code: O70.21 - THIRD DEGREE PERINEAL LACERATION DURING DELIVERY, IIIA Status: Acute Current Visit: Yes - Patient Summary/Data Complications: None Consults: None Recommended Follow-up Testing/Procedures: Follow up in 5-[address] Nichole for check and 2hr GTT Hospital Course: 26 y/o admitted at 38 3/7 wks in labor. She progressed well without augmentation and underwent an uncomplicated (did have pitocin started with pushing, approximately 2hours into that process). See delivery note. she did well and was discharged home on PPD#2. - Patient Instructions Diet: Regular Diet as Tolerated Activity: As Tolerated Activity, Other: Pelvic Rest for 6 weeks Driving: May Drive Today Showering/Bathing: May Shower Showering/Bathing, Other: May Bathe Notify Provider of: Fever, Increased Pain, Swelling and Redness, Drainage, Nausea and/or Vomiting - Discharge Plan Home Medications: Home Meds #103/Iron Fumarate/Fa [ ] 1 tab PO DAILY 01/21/15 [ History] Docusate Sodium [Colace] 100 mg PO BID PRN #0 cap 08/03/16 [Rx] Ibuprofen [IJD: Ibuprofen] 600 mg PO Q6H PRN #0 tablet 08/03/16 [Rx] Referrals: Negin Nichole MD [Primary Care Provider] - (5-6 weeks for check with 2hr glucose tolerance test ) - Discharge Summary/Plan Comment DC Time >30 min.: No - Patient Data Vitals - Most Recent: Last Vital Signs Temp 36.8 C 08/04/16 04:00 Pulse 84 08/04/16 04:00 Resp 16 08/04/16 04:00 BP 129/84 08/04/16 04:00 Pulse Ox 99 08/04/16 04:00 Weight - Most Recent: 108.227 kg Med Orders - Current: Current Medications Acetaminophen (Tylenol) 650 mg PO Q4H PRN PRN Reason: mild pain or fever Benzocaine/Menthol (Dermoplast Pain Relief [place]) 0 gm TOP ASDIRECTED PRN PRN Reason: Perineal Comfort Measure Last Admin: 08/02/16 21:34 Dose: 56 gm Docusate Sodium (Colace) 100 mg PO BID PRN PRN Reason: Constipation Last Admin: 08/03/16 22:17 Dose: 100 mg Emollient Ointment (Lansinoh Hpa) 0 gm TOP ASDIRECTED PRN PRN Reason: Sore Nipples Last Admin: 08/02/16 21:33 Dose: 7 gm Ibuprofen (Motrin) 600 mg PO Q6H PRN PRN Reason: Mild pain or fever Last Admin: 08/04/16 04:07 Dose: 600 mg Witch Diane (Tucks) 1 pad TOP ASDIRECTED PRN PRN Reason: Hemorrhoid pain Last Admin: 08/02/16 21:34 Dose: 1 pad Discontinued Medications Ephedrine Sulfate (Ephedrine Sulfate) 5 mg IVPUSH ASDIRECTED PRN PRN Reason: Hypotension Fentanyl (Sublimaze) 100 mcg EPIDUR Q3H PRN PRN Reason: Pain Last Admin: 08/02/16 16:50 Dose: 100 mcg Fentanyl/Bupivacaine HCl (Fentanyl/Bupivacaine/Ns 2 Mcg-0.125% 100 Ml) 100 ml EPIDUR ASDIRECTED [facility] Last Admin: 08/02/16 18:37 Dose: 100 ml Lactated Ringer's (Ringers, Lactated) 1,000 mls @ 100 mls/hr IV ASDIRECTED [facility] Last Admin: 08/02/16 15:00 Dose: 100 mls/hr Oxytocin/Lactated Ringer's (Pitocin In Lr 10 Units/1,000 Ml) 10 unit in 1,000 mls @ 500 mls/hr IV ASDIRECTED [facility] Last Infusion: 08/02/16 19:55 Dose: 500 mls/hr Lidocaine HCl (Xylocaine 1%) 20 ml INJECT ONETIME ONE Stop: 08/02/16 05:16 Last Admin: 08/02/16 20:59 Dose: Not Given Misoprostol (Cytotec) Confirm Administered Dose 600 mcg .ROUTE .STK-MED ONE Stop: 08/02/16 19:58 Last Admin: 08/02/16 20:59 Dose: Not Given Misoprostol (Cytotec) 600 mcg PO BID [facility] Last Admin: 08/02/16 21:32 Dose: Not Given Nalbuphine HCl (Nubain) 10 mg IVPUSH Q2H PRN PRN Reason: Pain (moderate 4-6) Last Admin: 08/02/16 06:38 Dose: 10 mg Ondansetron HCl (Zofran) 4 mg IVPUSH Q4H PRN PRN Reason: Nausea/Vomiting Last Admin: 08/02/16 10:58 Dose: 4 mg Ondansetron HCl (Zofran) 4 mg IVPUSH ONETIME PRN PRN Reason: Nausea/Vomiting Sodium Chloride (Saline Flush) 10 ml FLUSH ASDIRECTED PRN PRN Reason: Keep Vein Open *Q Meaningful Use (DIS) - VTE *Q VTE Criteria *Q: - Stroke *Q Stroke Criteria *Q: - AMI *Q AMI Criteria *Q:
--- NOTE | 2016-08-04 07:01 | PCM.PNPP ---
- General Info Date of Service: 08/04/16 Functional Status: Reports: pain controlled, tolerating diet, ambulating, urinating - Review of Systems General: Reports: No Symptoms Pulmonary: Reports: no symptoms Cardiovascular: Reports: No Symptoms Gastrointestinal: Reports: No symptoms Genitourinary: Reports: no symptoms - Patient Data Vital Signs - most recent: Last Vital Signs Temp 36.8 C 08/04/16 04:00 Pulse 84 08/04/16 04:00 Resp 16 08/04/16 04:00 BP 129/84 08/04/16 04:00 Pulse Ox 99 08/04/16 04:00 Weight - most recent: 108.227 kg Med Orders - Current: Current Medications Acetaminophen (Tylenol) 650 mg PO Q4H PRN PRN Reason: mild pain or fever Benzocaine/Menthol (Dermoplast Pain Relief [place]) 0 gm TOP ASDIRECTED PRN PRN Reason: Perineal Comfort Measure Last Admin: 08/02/16 21:34 Dose: 56 gm Docusate Sodium (Colace) 100 mg PO BID PRN PRN Reason: Constipation Last Admin: 08/03/16 22:17 Dose: 100 mg Emollient Ointment (Lansinoh Hpa) 0 gm TOP ASDIRECTED PRN PRN Reason: Sore Nipples Last Admin: 08/02/16 21:33 Dose: 7 gm Ibuprofen (Motrin) 600 mg PO Q6H PRN PRN Reason: Mild pain or fever Last Admin: 08/04/16 04:07 Dose: 600 mg Witch Diane (Tucks) 1 pad TOP ASDIRECTED PRN PRN Reason: Hemorrhoid pain Last Admin: 08/02/16 21:34 Dose: 1 pad Discontinued Medications Ephedrine Sulfate (Ephedrine Sulfate) 5 mg IVPUSH ASDIRECTED PRN PRN Reason: Hypotension Fentanyl (Sublimaze) 100 mcg EPIDUR Q3H PRN PRN Reason: Pain Last Admin: 08/02/16 16:50 Dose: 100 mcg Fentanyl/Bupivacaine HCl (Fentanyl/Bupivacaine/Ns 2 Mcg-0.125% 100 Ml) 100 ml EPIDUR ASDIRECTED [facility] Last Admin: 08/02/16 18:37 Dose: 100 ml Lactated Ringer's (Ringers, Lactated) 1,000 mls @ 100 mls/hr IV ASDIRECTED [facility] Last Admin: 08/02/16 15:00 Dose: 100 mls/hr Oxytocin/Lactated Ringer's (Pitocin In Lr 10 Units/1,000 Ml) 10 unit in 1,000 mls @ 500 mls/hr IV ASDIRECTED [facility] Last Infusion: 08/02/16 19:55 Dose: 500 mls/hr Lidocaine HCl (Xylocaine 1%) 20 ml INJECT ONETIME ONE Stop: 08/02/16 05:16 Last Admin: 08/02/16 20:59 Dose: Not Given Misoprostol (Cytotec) Confirm Administered Dose 600 mcg .ROUTE .STK-MED ONE Stop: 08/02/16 19:58 Last Admin: 08/02/16 20:59 Dose: Not Given Misoprostol (Cytotec) 600 mcg PO BID [facility] Last Admin: 08/02/16 21:32 Dose: Not Given Nalbuphine HCl (Nubain) 10 mg IVPUSH Q2H PRN PRN Reason: Pain (moderate 4-6) Last Admin: 08/02/16 06:38 Dose: 10 mg Ondansetron HCl (Zofran) 4 mg IVPUSH Q4H PRN PRN Reason: Nausea/Vomiting Last Admin: 08/02/16 10:58 Dose: 4 mg Ondansetron HCl (Zofran) 4 mg IVPUSH ONETIME PRN PRN Reason: Nausea/Vomiting Sodium Chloride (Saline Flush) 10 ml FLUSH ASDIRECTED PRN PRN Reason: Keep Vein Open - Infant Interaction Infant Disposition, : in Room with Family Interaction: Holding Infant Infant Feeding: Continues to Breastfeed Support Person: - Recovery Exam Fundal Tone: Firm Fundal Level: 1 Fingerbreadths Below Umbilicus Fundal Placement: Midline Lochia Amount: Scant Lochia Color: [place] Perineum Description: Other (see below) Other Perinuem Description: 3rd degree with repair Episiotomy/Laceration: Approximated Bladder Status: Voiding Urinary Elimination: Voided - Exam General: alert, oriented, cooperative Abdomen: soft, no tenderness Extremities: edema Skin: warm, dry, intact - Problem List & Annotations (1) 38 weeks gestation of SNOMED Code(s): 54555272 Code(s): Z3A.38 - 38 WEEKS GESTATION OF Status: Acute Current Visit: Yes (2) Normal labor SNOMED Code(s): 77371326 Code(s): O80 - ENCOUNTER FOR FULL-TERM UNCOMPLICATED DELIVERY; Z37.9 - OUTCOME OF DELIVERY, UNSPECIFIED Status: Acute Current Visit: Yes (3) GDM, class A1 SNOMED Code(s): 35722783 Code(s): O24.410 - GESTATIONAL DIABETES MELLITUS IN , DIET CONTROLLED Status: Acute Current Visit: Yes (4) Vaginal delivery SNOMED Code(s): 863594719 Code(s): O80 - ENCOUNTER FOR FULL-TERM UNCOMPLICATED DELIVERY Status: Acute Current Visit: Yes (5) Third degree laceration of perineum, type 3A SNOMED Code(s): 845429312 Code(s): O70.21 - THIRD DEGREE PERINEAL LACERATION DURING DELIVERY, IIIA Status: Acute Current Visit: Yes - Problem List Review Problem List Initiated/Reviewed/Updated: Yes - My Orders Last 24 Hours: My Active Orders 08/03/16 20:44 Heat Therapy [OM.PC] PRN - Assessment Assessment:: 26-year-old G5 now [id number] PPD#2 from at 38-3/7 weeks - Plan Plan:: * Routine cares * Encourage breast feeding * 2hr GTT at check * Discharge home today Negin Nichole MD
[2016-08-04 10:58] VITALS: BP 127/80
== END 2016-08-04 12:00 | disposition home or self-care (01) | DRG 542 ==
LOC: JD.OB 04:09 → JD.OBCHECK 04:09 → JD.OB 05:16 → OBSVTOIN 19:54
PROVIDERS: ADMIT Obstetrics & Gynecology; ATTEND Obstetrics & Gynecology
PROC: 10E0XZZ Delivery of Products of Conception, External Approach (ICD-10-PCS; principal; 2016-08-02)
PROC: 0DQR0ZZ Repair Anal Sphincter, Open Approach (ICD-10-PCS; 2016-08-02)
PROC: 10907ZC Drainage of Amniotic Fluid, Therapeutic from Products of Conception, Via Natural or Artificial Opening (ICD-10-PCS; 2016-08-02)
PROC: 00HU33Z Insertion of Infusion Device into Spinal Canal, Percutaneous Approach (ICD-10-PCS; 2016-08-02)
PROC: 3E0R3CZ (ICD-10-PCS; 2016-08-02)
DX: O24.420 Gestational diabetes mellitus in childbirth, diet controlled (principal); O70.20 Third degree perineal laceration during delivery, unspecified; O69.81X0 Labor and delivery complicated by cord around neck, without compression, not applicable or unspecified; Z3A.38 38 weeks gestation of pregnancy; Z37.0 Single live birth
CPT/HCPCS: 36415; 82962; 85025; 86850; 86900; 86901; A9270-GY; J2300; J2405; J2590; J3010; J7120